=== PATIENT | male | born 1950 | race Hispanic/Latino ===

== ENCOUNTER 2023-03-12 17:15 | Inpatient (IN) | payer OTHER ==
[2023-03-12 19:46] VITALS: BMI 35.9
[2023-03-12] MEDS ORDERED: ONDANSETRON 4 MG (ODT) TAB PO PRN (20:46)
[2023-03-12] MEDS ORDERED: DIPHENHYDRAMINE 25 MG TAB/CAP PO PRN (20:46)
[2023-03-12] MEDS ORDERED: ACETAMINOPHEN 325 MG TABLET PO PRN (20:46)
[2023-03-12] MEDS ORDERED: POLYETHYL GLY 3350 17 GM/DOSE PO PRN (20:46)
[2023-03-12] MEDS ORDERED: LOPERAMIDE HCL 2 MG CAPSULE PO PRN (20:46)
[2023-03-12] MEDS ORDERED: ONDANSETRON 4 MG/2 ML VIAL IV PRN (20:53)
[2023-03-12] MEDS ORDERED: D50W 25 GM/50 ML SYRINGE IV PRN (20:58)
[2023-03-12] MEDS ORDERED: GLUCAGON 1 MG/VIAL IM PRN (20:58)
[2023-03-12] MEDS: INSULIN REGULAR (HUMAN) 100 UNIT/ML SQ SCH (21:00)
[2023-03-12] MEDS ORDERED: D10W 125 ML IV PRN (21:05)
[2023-03-12 21:49] LABS: Absolute Lymphocytes (CBC) 2.1 K/uL (0.7-4.9); Lymphocytes % 32.1 % (15.3-44.8); MCV 95.7 fL (80-100); MPV 8.6 fL (7.6-11.3); Platelets 259 thou/uL (152-406); Protime INR 1.67; RBC Red Blood Cell Count 4.18 M/uL (4.33-5.43)
[2023-03-12 22:06] LABS: ALT/SGPT 29 U/L (16-61); AST/SGOT 21 U/L (15-37); Albumin 3.3 g/dL (3.4-5.0); Alkaline Phosphatase 69 U/L (45-117); BUN Blood Urea Nitrogen 19 mg/dL (7-18); Bicarbonate 29 mEq/L (21-32); Bilirubin Total 0.2 mg/dL (0.2-1.0); Creatine Phosphokinase 259 U/L (39-308); Glomerular Filtration Rate 61 ml/min (=/>90); Glucose Level 161 mg/dL (74-106); Magnesium 1.6 mg/dL (1.6-2.4); Phosphorus 3.2 mg/dL (2.5-4.9); Potassium 3.6 mEq/L (3.5-5.1); Protein, Total 6.9 g/dL (6.4-8.2); Sodium Level 137 mEq/L (136-145)
[2023-03-12 22:08] LABS: Bilirubin Direct < 0.1 mg/dL (0-0.2); Bilirubin Indirect, Calculated ND mg/dL (0.2-0.8)
[2023-03-12 23:53] LABS: Specific Gravity 1.014 (1.005-1.030); Urine Bacteria None Seen /HPF (<20); Urine Bilirubin NEGATIVE (Negative); Urine Blood Negative (Negative); Urine Clarity Clear (Clear); Urine Color Light-Yellow (Yellow); Urine Glucose NEGATIVE (Negative); Urine Protein NEGATIVE (Negative); Urine RBC <5 /HPF (None Seen); Urine Urobilinogen Normal (Normal)
[2023-03-12 23:54] LABS: SARS-CoV-2 Antigen Rapid Res Negative (Negative)
[2023-03-13 04:02] LABS: Absolute Lymphocytes (CBC) 1.9 K/uL (0.7-4.9); Hematocrit 38.7 % (39.6-49.0); Lymphocytes % 30.9 % (15.3-44.8); MCV 95.5 fL (80-100); MPV 7.9 fL (7.6-11.3); Platelets 258 thou/uL (152-406); RBC Red Blood Cell Count 4.05 M/uL (4.33-5.43)
[2023-03-13 04:18] LABS: Magnesium 1.7 mg/dL (1.6-2.4); Potassium 3.6 mEq/L (3.5-5.1); Troponin High Sensitivity 135.2 pg/mL (<58.9)
[2023-03-13] MEDS ORDERED: MAGNESIUM SULFATE 1 gm IVPB 1 GM/100 ML BAG IV ONE (06:00)
--- NOTE | 2023-03-13 07:22 | P.HP ---
Certification for Inpatient With expected LOS: >2 Midnights Patient will require the following post-hospital care: None Practitioner: I am a practitioner with admitting privileges, knowledge of patient current condition, hospital course, and medical plan of care. Services: Services provided to patient in accordance with Admission requirements found in Title 42 Section 412.3 of the Code of Federal Regulations Patient History Date of Service: 03/13/23 Primary Care Provider: Dr. Acosta Reason for admission: Dyspnea, Elevated troponin Allergies Iodinated Contrast Media [Iodinated Contrast Media - IV Dye] Allergy (Verified 01/26/16 11:32) passed out Home medications list reviewed: Yes Home Medications: Carvedilol [Coreg] 25 mg PO BID 6AM 6PM 03/13/23 Cetirizine HCl [Zyrtec] 10 mg PO DAILY 03/13/23 Glimepiride 2 mg PO BEDTIME 03/13/23 Hydralazine HCl 100 mg PO BID 03/13/23 Levothyroxine Sodium 25 mcg PO DAILY 03/13/23 Losartan Potassium [Cozaar] 100 mg PO DAILY 03/13/23 Magnesium Oxide [Mag-Oxide] 03/13/23 Metformin HCl [Metformin ER Gastric] 1,000 mg PO BID 03/13/23 Montelukast Sodium 10 mg PO BEDTIME 03/13/23 [place]-3 Fatty Acids [[place]-3] 1,000 mg PO DAILY 03/13/23 Rivaroxaban [Xarelto] 20 mg PO DAILY 03/13/23 Simvastatin 40 mg PO BEDTIME 03/13/23 - Past Medical/Surgical History Has patient received pneumonia vaccine in the past: Yes Diabetic: Yes -: NIDDM -: HTN -: HLD -: Pulmonary Embolism -: Vertigo -: Shoulder, Knee surgery -: Neck Fusion Psychosocial/ Personal History: Lives at home with his - Social History Smoking Status: Never smoker Alcohol use: No CD- Drugs: No Caffeine use: Yes Place of Residence: Home Review of Systems 10-point ROS is otherwise unremarkable Respiratory: Shortness of Breath Neurological: Weakness, Other (dizzy and wobbly, but unlike with vertigo) Physical Examination - Vital Signs Temperature: 97.6 F Blood Pressure: 167/84 Pulse: 57 Respirations: 17 Pulse Ox (%): 97 - Physical Exam General: Alert, In no apparent distress, Oriented x3 HEENT: Atraumatic, Normocephalic, PERRLA Neck: Supple, 2+ carotid pulse no bruit Respiratory: Clear to auscultation bilaterally Cardiovascular: No edema, Regular rate/rhythm, Other (bradycardic) Capillary refill: <2 Seconds Gastrointestinal: Normal bowel sounds, Soft and benign Musculoskeletal: No clubbing Integumentary: No rashes Neurological: Normal speech, Normal tone, Other (hearing loss) Lymphatics: No axilla or inguinal lymphadenopathy External genitalia: Deferred Rectal: Deferred - Studies Laboratory Data (last 24 hrs) 03/13/23 03/13/23 03/12/23 03:36 03:36 21:22 WBC 6.20 Hgb 12.8 L Hct 38.7 L Plt Count 258 PT INR APTT Sodium 139 137 Potassium 3.6 3.6 BUN 20 H 19 H Creatinine 1.07 1.24 Glucose 86 161 H Phosphorus 3.2 Magnesium 1.7 1.6 Total Bilirubin 0.2 AST 21 ALT 29 Alkaline Phosphatase 69 03/12/23 03/12/23 21:22 21:22 WBC 6.70 Hgb 13.0 L Hct 40.0 Plt Count 259 PT 18.1 H INR 1.67 APTT 38.1 H Sodium Potassium BUN Creatinine Glucose Phosphorus Magnesium Total Bilirubin AST ALT Alkaline Phosphatase Microbiology Data (last 24 hrs): 03/12/23 23:16 Throat Group A Streptococcus Rapid Screen - Final Assessment and Plan - Problems (Diagnosis) (1) Elevated troponin I level Current Visit: Yes Status: Acute Plan: Trend troponin consider VQ second to contrast allergy telemetry ECHO (2) Dyspnea Current Visit: Yes Status: Acute Plan: continuous pulse oximetry O2 prn US bilateral lower extremities continue Xarelto (3) Hypertension Current Visit: Yes Status: Acute Plan: Continue to monitor VS and continue home medications - Advance Directives Does patient have a Living Will: Yes Does patient have a Durable POA for Healthcare: No
[2023-03-13] MEDS: INSULIN REGULAR (HUMAN) 100 UNIT/ML SQ SCH ×4 (07:30→21:08)
[2023-03-13] MEDS ORDERED: ENOXAPARIN 40 MG/0.4 ML SQ SCH (09:00)
[2023-03-13] MEDS ORDERED: POTASSIUM CL SA 10 MEQ TAB PO ONE (09:00)
--- NOTE | 2023-03-13 09:03 | RAD REPORT ---
EXAM DESCRIPTION: US - Extrem Venous W Compress Jose Juan - 03/13/2023 8:15 am CLINICAL HISTORY: History of PE, dyspnea, elevated troponin COMPARISON: 01/24/2017 TECHNIQUE: Real-time sonographic evaluation of the bilateral lower extremity deep venous systems was performed. FINDINGS: Partially compressible proximal to distal right superficial femoral vein, with limited dwight w and absent phasic flow, with hypoechoic thrombus seen within. Normal compressibility of the right c ommon femoral vein, popliteal, and posterior tibial veins. Normal compressibility, flow augmentation, phasic flow and spontaneous flow is identified in the left lower extremity deep venous system. No intraluminal filling defects seen. IMPRESSION: Exam is positive for partially occlusive thrombus along the right superficial femoral ve in. No evidence of DVT in the distal right or left lower extremity. The findings were communicated to Adonay Acosta on 03/13/2023 at 08:59 hours.
[2023-03-13] MEDS ORDERED: ENOXAPARIN 100 MG/ML SYR SQ SCH (10:00)
[2023-03-13] MEDS ORDERED: ENOXAPARIN 60 MG/0.6 ML SQ ONE (10:00)
[2023-03-13] MEDS: LEVOTHYROXINE SOD 0.025 MG TAB PO SCH (10:49)
[2023-03-13] MEDS: LOSARTAN POTASSIUM 50 MG TABLET PO SCH (10:49)
--- NOTE | 2023-03-13 11:47 | RAD REPORT ---
EXAM DESCRIPTION: NM - Vent Perfusion VQ Scan - 03/13/2023 11:28 am CLINICAL HISTORY: hypoxia, dvt COMPARISON: Chest Pa And Lat (2 Views) dated 03/12/2023 TECHNIQUE: Patient was administered 17.2mCi Xe-133 gas inhaled and 6.8mCi Tc-MAA IV. Planar ventilation scan was performed in posterior projection after Xe-133 gas inhalation (wash-in, e quilibrium, and wash-out phases) followed by perfusion scan with Tc-MAA IV in multiple projections. Examination is correlated with recent chest radiograph. FINDINGS: Normal ventilation with appropriate wash-out and no significant air-trapping. No mismatched segmental perfusion defect. IMPRESSION: Very low probability of acute pulmonary embolism.
--- NOTE | 2023-03-13 12:04 | RAD REPORT ---
EXAM DESCRIPTION: [facility] 11[facility]27 am CLINICAL HISTORY: Post VQ scan COMPARISON: Chest Pa And Lat (2 Views) dated 03/12/2023; Chest Pa And Lat (2 Views) dated 07/17/2015; CHEST SINGLE VIEW dated 08/24/2009; CHEST SINGLE VIEW dated 03/11/2006 TECHNIQUE: Portable AP view of the chest. FINDINGS: The lungs are clear. No pneumothorax or effusion. The cardiomediastinal contours are unre markable. IMPRESSION: No acute cardiopulmonary process.
--- NOTE | 2023-03-13 13:12 | P.PN ---
Subjective Date of Service: 03/13/23 Primary Care Provider: Dr. Acosta Chief Complaint: Dyspnea, Elevated troponin Subjective: Improving HE IS STABLE. HAS NO PAIN. RADIOLOGIST CALLED ABOUT DVT IN SUP FEMORAL VEIN DESPITE BEING ON XARELTO. Review of Systems 10-point ROS is otherwise unremarkable General: Weakness Physical Examination - Vital Signs Temperature: 97.4 F Blood Pressure: 183/88 Pulse: 54 Respirations: 18 Pulse Ox (%): 92 - Physical Exam General: Acute distress, Mild distress HEENT: Atraumatic, PERRLA, EOMI Neck: Supple, JVD not distended Respiratory: Clear to auscultation bilaterally, Normal air movement Cardiovascular: Regular rate/rhythm, Normal S1 S2 Gastrointestinal: Normal bowel sounds, No tenderness Musculoskeletal: No tenderness Integumentary: No rashes Neurological: Normal speech, Normal tone, Normal affect Lymphatics: No axilla or inguinal lymphadenopathy - Studies Laboratory Data (last 24 hrs) 03/13/23 03/13/23 03/12/23 03:36 03:36 21:22 WBC 6.20 Hgb 12.8 L Hct 38.7 L Plt Count 258 PT INR APTT Sodium 139 137 Potassium 3.6 3.6 BUN 20 H 19 H Creatinine 1.07 1.24 Glucose 86 161 H Phosphorus 3.2 Magnesium 1.7 1.6 Total Bilirubin 0.2 AST 21 ALT 29 Alkaline Phosphatase 69 03/12/23 03/12/23 21:22 21:22 WBC 6.70 Hgb 13.0 L Hct 40.0 Plt Count 259 PT 18.1 H INR 1.67 APTT 38.1 H Sodium Potassium BUN Creatinine Glucose Phosphorus Magnesium Total Bilirubin AST ALT Alkaline Phosphatase Microbiology Data (last 24 hrs): 03/12/23 23:16 Throat Group A Streptococcus Rapid Screen - Final Medications List Reviewed: Yes Assessment And Plan - Current Problems (Diagnosis) (1) DVT (deep venous thrombosis) Current Visit: Yes Status: Acute Plan: LOVENOX BID WILL STOP XARELTO MAY END UP WITH WARFARIN FOR LONG TIME. (2) Dyspnea Current Visit: Yes Status: Acute Plan: ORDER VQ CAN'T DO CATH FOR NOW. ALLERGIC TO IODINE. WILL DW DR. TOVAR ST TEST POSSIBLE. ECHO WITH DOPPLER RULE OUT OTHER DYSPNEA ETIOLOGY. BNP NORMAL. (3) Elevated troponin I level Current Visit: Yes Status: Acute (4) Hypertension Current Visit: Yes Status: Chronic Plan: RESUME HOME MEDS.
[2023-03-13] MEDS: HYDRALAZINE HCL 25 MG TABLET PO SCH ×2 (14:41→21:07)
[2023-03-13] MEDS: carvediloL 25 MG TAB PO SCH (17:56)
[2023-03-13] MEDS: METFORMIN ER 500 MG TAB PO SCH (17:57)
[2023-03-13] MEDS ORDERED: MONTELUKAST 10 MG TAB PO SCH (21:00)
[2023-03-13] MEDS ORDERED: GLIMEPIRIDE 2 MG TABLET PO SCH (21:00)
[2023-03-13] MEDS ORDERED: HYDRALAZINE HCL 25 MG TABLET PO SCH (21:00)
[2023-03-13] MEDS ORDERED: ATORVASTATIN 20 MG TAB PO SCH (21:00)
[2023-03-13] MEDS: ENOXAPARIN 100 MG/ML SYR SQ SCH (21:08)
[2023-03-14 02:53] LABS: Potassium 3.5 mEq/L (3.5-5.1)
[2023-03-14] MEDS: carvediloL 25 MG TAB PO SCH (05:47)
[2023-03-14] MEDS: INSULIN REGULAR (HUMAN) 100 UNIT/ML SQ SCH ×2 (07:30→11:30)
[2023-03-14] MEDS: HYDRALAZINE HCL 25 MG TABLET PO SCH ×2 (09:00→14:00)
[2023-03-14 09:03] VITALS: O2SAT 93
[2023-03-14] MEDS: LEVOTHYROXINE SOD 0.025 MG TAB PO SCH (09:28)
[2023-03-14] MEDS: LOSARTAN POTASSIUM 50 MG TABLET PO SCH (09:29)
[2023-03-14] MEDS: METFORMIN ER 500 MG TAB PO SCH (09:29)
[2023-03-14] MEDS: ENOXAPARIN 100 MG/ML SYR SQ SCH (09:30)
--- NOTE | 2023-03-14 12:21 | RAD REPORT ---
EXAM DESCRIPTION: MRI - Brain Wo Cont - 03/14/2023 12:00 pm CLINICAL HISTORY: dizzy Headache, drowsiness COMPARISON: MRA Head Wo Cont dated 03/14/2023 TECHNIQUE: Multi-sequence, multiplanar MR imaging of the brain was performed without contrast. FINDINGS: No intracranial hemorrhage, hydrocephalus or extra-axial fluid collections.Mild T2 and FLA IR hyperintensity in the periventricular and deep white matter likely chronic microvascular ischemic changes. No edema or shift of midline structures. No findings to suspect brain mass. DWI is negative for acute CVA. Midline structures are normally formed. Mastoid air cells and paranasal sinuses are clear. IMPRESSION: Negative for acute CVA or other acute intracranial process.
--- NOTE | 2023-03-14 12:23 | RAD REPORT ---
EXAM DESCRIPTION: MRI - MRA Head Wo Cont - 03/14/2023 11:50 am CLINICAL HISTORY: DIZZY Headache, drowsiness, CVA symptomology COMPARISON: MRI BRAIN W WO CONTRAST dated 03/19/2013 FINDINGS: 3D noncontrast [id number] MR angiography of the [place] was performed. No evidence of large vessel occlusion. No aneurysm, flow-limiting stenosis or vascular malformation i s seen. Forward flow seen in both vertebral arteries. The visualized dural venous sinuses appear patent. IMPRESSION: No significant flow abnormality of the [place] is identified.
[2023-03-14 13:45] VITALS: BP 144/82; TEMP 98.3
--- NOTE | 2023-03-14 14:56 | ECHO ---
HEIGHT: 5 ft 5 in WEIGHT: 216 lb 0 oz DATE OF STUDY: 03/14/[address]: Adonay Acosta MD 2-DIMENSIONAL: YES M.MODE: YES DOPPLER: YES COLOR FLOW: YES TDS: PORTABLE: YES DEFINITY: BUBBLE STUDY: DIAGNOSIS: EDEMA, DYSPNEA CARDIAC HISTORY: CATHERIZATION: NO SURGERY: NO PROSTHETIC VALVE: NO PACEMAKER: NO MEASUREMENTS (cm) DIASTOLIC (NORMALS) SYSTOLIC (NORMALS) IVSd 1.4 (0.6-1.2) LA Diam 3.2 (1.9-4.0) LVEF 52% LVIDd 5.0 (3.5-5.7) LVIDs 3.6 (2.0-3.5) %FS 27% LVPWd 1.4 (0.6-1.2) Ao Diam 3.0 (2.0-3.7) 2 DIMENSIONAL ASSESSMENT: RIGHT ATRIUM: NORMAL LEFT ATRIUM: NORMAL RIGHT VENTRICLE: NORMAL LEFT VENTRICLE: NORMAL TRICUSPID VALVE: MILD TRICUSPID REGURGITATION MITRAL VALVE: MILD MITRAL REGURGITATION PULMONIC VALVE: NORMAL AORTIC VALVE: NORMAL PERICARDIAL EFFUSION: NONE AORTIC ROOT: NORMAL LEFT VENTRICULAR WALL MOTION: NORMAL DOPPLER/COLOR FLOW: SEE BELOW COMMENTS: 1. NORMAL LEFT VENTRICULAR EJECTION FRACTION 50-55$ 2. GRADE I DIASTOLIC DYSFUNCTION 3. NORMAL RIGHT VENTRICULAR SIZE AND FUNCTION 4. MILD MITRAL REGURGITATION 5. MILD TRICUSPID REGURGITATION TECHNOLOGIST: SUAD WATERMAN
--- NOTE | 2023-03-14 17:34 | P.DS ---
Admission Date: 03/13/23 Discharge Date: 03/14/23 Primary Care Provider: Dr. Acosta Disposition: ROUTINE DISCHARGE Discharge Condition: FAIR Reason for Admission: Dyspnea, Elevated troponin - Problems (1) DVT (deep venous thrombosis) Status: Acute (2) Dyspnea Status: Acute (3) Elevated troponin I level Status: Acute (4) Hypertension Status: Chronic Qualifiers: Hypertension type: primary hypertension Qualified Code(s): I10 - Essential (primary) hypertension Hospital Course: HERMES HAS DYSPNEA. TROP IS MILD HIGH. HE CAN'T DO CATH HE HAS SEVERE ALLERGY TO IODINE. HE MAY HAVE FAILED XARELTO DVT ON R SIDE MAY BE SUBACUTE. I GAVE LOVENOX BID AND HE SI STABLE TO GO HOME ON ELIQUIS. HE MAY NEED WARFARIN IF THAT FAILS. WE WILL REDO SONOGRAM IN 2 MTHS. I GAVE 6 WEEKS SAMPLES I AM NOT SURE IF [employer] WILL PAY FOR THIS. HE WILL GET OUTPATINT ST TEST I ALSO DID MRI AND MRA OF BRAIN STAT FOR DIZZINESS. THESE ARE NEGATIVE. Vital Signs/Physical Exam: Temp Pulse Resp BP Pulse Ox 98.3 F 108 H 18 144/82 H 94 03/14/23 12:00 03/14/23 12:00 03/14/23 12:00 03/14/23 12:00 03/14/23 12:00 Laboratory Data at Discharge: WBC 6.20 thou/uL (4.3-10.9) 03/13/23 03:36 Hgb 12.8 g/dL (13.6-17.9) L 03/13/23 03:36 Hct 38.7 % (39.6-49.0) L 03/13/23 03:36 Plt Count 258 thou/uL (152-406) 03/13/23 03:36 PT 18.1 SECONDS (9.5-12.5) H 03/12/23 21:22 INR 1.67 03/12/23 21:22 APTT 38.1 SECONDS (24.3-36.9) H 03/12/23 21:22 Sodium 139 mEq/L (136-145) 03/14/23 01:50 Potassium 3.5 mEq/L (3.5-5.1) 03/14/23 01:50 BUN 18 mg/dL (7-18) 03/14/23 01:50 Creatinine 1.08 mg/dL (0.70-1.30) 03/14/23 01:50 Glucose 59 mg/dL (74-106) L 03/14/23 01:50 Phosphorus 3.2 mg/dL (2.5-4.9) 03/12/23 21:22 Magnesium 1.7 mg/dL (1.6-2.4) 03/13/23 03:36 Total Bilirubin 0.2 mg/dL (0.2-1.0) 03/12/23 21:22 AST 21 U/L (15-37) 03/12/23 21:22 ALT 29 U/L (16-61) 03/12/23 21:22 Alkaline Phosphatase 69 U/L (45-117) 03/12/23 21:22 Home Medications: Carvedilol [Coreg] 25 mg PO BID 6AM 6PM 03/13/23 Cetirizine HCl [Zyrtec] 10 mg PO DAILY 03/13/23 Glimepiride 2 mg PO BEDTIME 03/13/23 Hydralazine HCl 100 mg PO BID 03/13/23 Levothyroxine Sodium 25 mcg PO DAILY 03/13/23 Losartan Potassium [Cozaar] 100 mg PO DAILY 03/13/23 Magnesium Oxide [Mag-Oxide] 03/13/23 Metformin HCl [Metformin ER Gastric] 1,000 mg PO BID 03/13/23 Montelukast Sodium 10 mg PO BEDTIME 03/13/23 [place]-3 Fatty Acids [[place]-3] 1,000 mg PO DAILY 03/13/23 Simvastatin 40 mg PO BEDTIME 03/13/23 Followup: Adonay Acosta MD [Family Provider] - Otoniel Tesfaye MD [ACTIVE - CAN ADMIT] -
[2023-03-19 12:31] LABS: Protein C Antigen 102 % normal (70-140)
== END 2023-03-14 15:41 | disposition home or self-care (01) | DRG 301 ==
LOC: PREINTOOBSV 17:19 → 2ND 17:50 → OBSVTOIN 03-13 13:06
PROVIDERS: ADMIT Internal Medicine; ATTEND Internal Medicine
DX: I82.411 Acute embolism and thrombosis of right femoral vein (principal); R06.00 Dyspnea, unspecified; I10 Essential (primary) hypertension; Z91.041 Radiographic dye allergy status
CPT/HCPCS: 36415; 70544; 70551; 71045; 78582; 80048; 80076; 81001; 81241; 82550; 82947; 83090; 83735; 84100; 84443; 84484; 85025; 85302; 85305; 85306; 85610; 85730; 86147; 87070; 87081; 87811; 93306; 93970; A9540; A9558; G0378; G0379; J1650; J1815; J3475